=== PATIENT | male | born 1955 | race Caucasian/White ===

== ENCOUNTER 2025-08-09 11:21 | Emergency (ER) | payer MEDICARE, MEDICAID ==
[~2025-08-09] VITALS: Ht 157.5 cm; Wt 75.0 kg
[2025-08-09 11:37] VITALS: O2SAT 97
[2025-08-09 12:16] LABS: BASOPHILS % 1.2 % (0.0-2.0); EOSINOPHILS % 4.3 % (0.0-5.0); HEMATOCRIT. 42.5 % (42.0-52.0); HEMOGLOBIN. 14.6 g/dL (14.0-18.0); LYMPHOCYTES % 21.0 % (20.0-50.0); MEAN PLATELET VOLUME 7.3 fl (7.4-10.4); MONOCYTES % 6.0 % (2.0-8.0); NEUTROPHILS % 67.5 % (40.0-76.0); PLATELET 158 x1000/uL (130-400); RED BLOOD CELL COUNT 4.78 mill/uL (4.7-6.1); RED CELL DISTRIBUTION WIDTH 14.0 % (11.6-14.6)
[2025-08-09 12:40] LABS: CREATININE 1.4 mg/dL (0.6-1.3); UREA NITROGEN BLOOD 17 mg/dL (9-23)
[2025-08-09 12:42] LABS: ASPARTATE AMINOTRANSFERASE 16 IU/L (<34); BILIRUBIN DIRECT 0.2 mg/dL (<=3.0); BILIRUBIN TOTAL 0.8 mg/dL (0.1-1.0); PROTEIN TOTAL 6.6 g/dL (6.0-8.3); TROPONIN I HIGH SENSITIVITY 6 ng/L (3.0-53)
[2025-08-09] MEDS ORDERED: MECL-299 MT (14:26)
[2025-08-09 15:00] VITALS: BP 125/71; PULSE 55; RESP 15; TEMP 36.8; O2SAT 99
== END 2025-08-09 15:02 | disposition home or self-care (01) ==
LOC: ER 11:21 → CANBEDREQ 15:10
DX: R42 Dizziness and giddiness (principal); I10 Essential (primary) hypertension; I67.82 Cerebral ischemia; M54.2 Cervicalgia; Z79.899 Other long term (current) drug therapy
CPT/HCPCS: 36415; 71045; 80048; 80076; 83735; 83880; 84484; 85025; 93005; 99285